=== PATIENT | male | born 1965 | race Caucasian/White ===

== ENCOUNTER 2022-05-06 09:12 | Outpatient (CLI) | payer OTHER, MEDICAID, SELFPAY ==
[2022-05-06 11:08] LABS: PSA Diagnostic* < 0.06 ng/mL (0.10-4.00)
[2022-05-08 04:03] LABS: Testosterone, Adult Male 135 ng/dL (300-890)
== END 2022-05-06 09:13 | disposition home or self-care (01) ==
PROVIDERS: Visit Provider Physician Assistant
DX: R97.21 Rising PSA following treatment for malignant neoplasm of prostate (principal)
CPT/HCPCS: 36415; 84153; 84403